=== PATIENT | male | born 1950 | race Caucasian/White ===

== ENCOUNTER 2017-06-18 08:13 | Inpatient (IN) | payer MEDICARE, BC ==
[~2017-06-18] VITALS: Ht 180.3 cm; Wt 77.8 kg
[2017-06-18 08:15] VITALS: BP 152/89; PULSE 66; RESP 12; TEMP 97.8; O2SAT 100
[2017-06-18] MEDS ORDERED: LAMO200T PO (08:47)
[2017-06-18] MEDS ORDERED: REME15TA PO (08:51)
[2017-06-18] MEDS ORDERED: ZOLP10TA3 PO (08:51)
[2017-06-18] MEDS ORDERED: SIMV40TA PO (08:51)
[2017-06-18] MEDS ORDERED: HYDR25TA5 PO (08:51)
[2017-06-18] MEDS ORDERED: VALS1TAB70 PO (08:51)
[2017-06-18 09:13] LABS: AUTOMATED NEUTROPHIL # 4.5 TH/MM3 (1.8-7.7); BASOPHIL % 0.4 % (0.0-2.0); EOSINOPHIL # 0.1 TH/MM3 (0-0.4); HEMATOCRIT 36.4 % (39.0-51.0); HEMOGLOBIN 12.4 GM/DL (13.0-17.0); LYMPH % 16.4 % (9.0-44.0); MEAN CELL VOLUME 93.7 FL (80.0-100.0); MEAN CORPUSCULAR HEMOGLOBIN 31.9 PG (27.0-34.0); MEAN CORPUSCULAR HGB CONC 34.1 % (32.0-36.0); MEAN PLATELET VOLUME 6.5 FL (7.0-11.0); MONO % 10.7 % (0.0-8.0); MONOCYTE # 0.7 TH/MM3 (0-0.9); NEUT % 71.5 % (16.0-70.0); PLATELET COUNT 212 TH/MM3 (150-450); RED BLOOD COUNT 3.89 MIL/MM3 (4.50-5.90); WHITE BLOOD COUNT 6.2 TH/MM3 (4.0-11.0)
[2017-06-18 09:33] LABS: ALBUMIN 3.8 GM/DL (3.4-5.0); ALT (GPT) 21 U/L (12-78); AST (GOT) 20 U/L (15-37); BICARBONATE 28.9 MEQ/L (21.0-32.0); BLOOD UREA NITROGEN 6 MG/DL (7-18); CALCIUM 9.5 MG/DL (8.5-10.1); CHLORIDE 100 MEQ/L (98-107); CREATININE 0.75 MG/DL (0.60-1.30); GLOMERULAR FILTRATION RATE 103 ML/MIN (>89); GLUCOSE,RANDOM 120 MG/DL (74-106); SODIUM (NA) 135 MEQ/L (136-145)
[2017-06-18 09:44] LABS: ACETAMINOPHEN LESS THAN 2.0 MCG/ML (10.0-30.0); ALKALINE PHOSPHATASE 68 U/L (45-117); TOTAL BILIRUBIN ADULT 0.5 MG/DL (0.2-1.0); TOTAL PROTEIN 7.6 GM/DL (6.4-8.2)
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
--- NOTE | 2017-06-18 10:30 | RADRPT ---
EXAM DATE/TIME: 06/18/2017 10:11 [place] COMPARISON: No previous studies available for comparison. INDICATIONS : Altered mental status. RADIATION DOSE: 42.74 CTDIvol (mGy) MEDICAL HISTORY : Carcinoma, prostate. Hypertension. SURGICAL HISTORY : Prostatectomy. ENCOUNTER: Initial ACUITY: 1 day PAIN SCALE: 0/10 LOCATION: cranial TECHNIQUE: Multiple contiguous axial images were obtained of the head. Using automated exposure control and adj ustment of the mA and/or kV according to patient size, radiation dose was kept as low as reasonably a chievable to obtain optimal diagnostic quality images. DICOM format image data is available electro nically for review and comparison. FINDINGS: CEREBRUM: The ventricles are normal for age. No evidence of midline shift, mass lesion, hemorrhage or acute in farction. No extra-axial fluid collections are seen. POSTERIOR FOSSA: The cerebellum and brainstem are intact. The 4th ventricle is midline. The cerebellopontine angle i s unremarkable. EXTRACRANIAL: The visualized portion of the orbits is intact. SKULL: The calvaria is intact. No evidence of skull fracture. CONCLUSION: 1. No acute intracranial abnormalities. Fluid in the mastoid air cells. Mike Castle MD on June 18, 2017 at 10:26 Board Certified Radiologist. This report was verified electronically.
[2017-06-18] MEDS ORDERED: MAGNESIUM HYDROXIDE SUSP 30 ML CUP PO PRN (11:15)
[2017-06-18] MEDS ORDERED: diphenhydrAMINE HCL 50 MG/ML VIAL IM PRN (11:15)
[2017-06-18] MEDS ORDERED: ALUMINUM/MAGNESIUM/SIMETH 30 ML CUP PO PRN (11:15)
[2017-06-18] MEDS ORDERED: LORazepam 2 MG/ML VIAL IM PRN (11:15)
[2017-06-18] MEDS ORDERED: ACETAMINOPHEN 325 MG TAB PO PRN (11:15)
--- NOTE | 2017-06-18 11:58 | HHI.HP ---
Provisional Diagnosis Admission Date Jun 18, 2017 at 11:13 [place] I. Bipolar disorder Certification of Person's Competence To Provide Express and Informed Consent I have personally examined Geovanni Bishop , a person being served at [facility] on, Jun 18, 2017 11:47. Express and informed consent means consent voluntarily given in writing, by a competent person, after sufficient explanation and disclosure of the subject matter involved to enable the person to make a knowing and willful decision without any element of force, fraud, deceit, duress, or other form of constraint or coercion. This person is 18 years of age or older, is not now known to be incompetent to consent to treatment with a guardian advocate, and does not have a health care surrogate or proxy currently making medical treatment decisions. I have found this person to be one of the following: [] Competent to provide express and informed consent, as defined above, for voluntary admission to this facility and is competent to provide express and informed consent for treatment. He/she has the consistent capacity to make well reasoned, willful, and knowing decisions concerning his or her medical or mental health treatment. The person fully and consistently understands the purpose of the admission for examination/placement and is fully capable of personally exercising all rights assured [place] [X] Incompetent to provide express and informed consent to voluntary admission, and this is incompetent to provide express and informed consent to treatment. The person must be transferred to involuntary status and a petition for a guardian advocate filed with the Circuit Court. [] Refusing to provide express and informed consent to voluntary admission but is competent to provide express and informed consent for treatment. The person must be discharged or transferred to involuntary status. Form shall be completed within 24 hours of a person's arrival at the receiving facility and filed in the clinical record of each person: 1. Admitted on a voluntary basis 2. Permitted to provide express and informed consent to his/her own treatment 3. Allowed to transfer from involuntary to voluntary status 4. Prior to permitting a person to consent to his or her own treatment after having been previously found incompetent to consent to treatment. History of Present Illness Capacity: Lacks Capacity HPI 67-year-old male with multiyear history of bipolar disorder, noncompliant with medications recently, Owen acted by [facility] physician for inability to care for self. This physician completed the civil commitment paperwork because the patient is too psychotic to be considered competent. He is a very poor historian at this time and engages in loose associations, bordering on Word salad, flight of ideas, ideas of reference, etc. When approached by this physician, the patient indicated he met got in the bathroom this morning. He explained "Jakcie, Garth, Miles". When asked what that meant, the patient indicated his of "forever" was related to these names. The patient's was contacted and indicates he does have a history of bipolar disorder, has been noncompliant with his medications for an unknown period of time and is grossly psychotic and disorganized. He has a history of medical issues and is not taking his non-psychiatric medicines to care for himself. His is unable to care for him at this time. He is experiencing auditory hallucinations, visual hallucinations and confucianism delusions. Review of Systems Psychiatric: COMPLAINS OF: Confusion, Agitation, Delusions Except as stated in HPI: all other systems reviewed are Neg Past Psych History Psychological trauma history Multiyear history of bipolar disorder. Violence risk - others (6 mos) Moderate to severe Violence risk - self (6 mos) Moderate to severe Substance Abuse History Drugs/Alcohol past 12 months Denied Past Family Social History Coded Allergies: latex (Verified Adverse Reaction, Severe, 06/18/17) Reported Medications Mirtazapine (Remeron) 15 Mg Tab, PO HS for Depression Control, #30 TAB 0 Refills 06/18/17 Valsartan (Valsartan) 320 Mg Tab, 320 MG PO DAILY, #30 TAB 0 Refills 06/18/17 Simvastatin (Simvastatin) 40 Mg Tab, 40 MG PO HS for Cholesterol Management, # 30 TAB 0 Refills 06/18/17 Zolpidem (Zolpidem) 10 Mg Tab, 10 MG PO HS Y for INSOMNIA, TAB 0 Refills 06/18/17 Hydrochlorothiazide (Hydrochlorothiazide) 25 Mg Tab, 25 MG PO DAILY, #30 TAB 0 Refills 06/18/17 Lamotrigine (Lamotrigine) 200 Mg Tab, 200 MG PO DAILY for Control Seizures, #30 TAB 0 Refills 06/18/17 Current Medications Medications (Trade) Dose Ordered Sig/Tami Route Start Time Stop Time Status Last Admin (Ativan) 1 mg Q6H PRN PO 06/18/17 11:15 (Ativan Inj) 1 mg Q6H PRN IM 06/18/17 11:15 (Benadryl) 50 mg Q6H PRN PO 06/18/17 11:15 (Benadryl Inj) 50 mg Q6H PRN IM 06/18/17 11:15 (Tylenol) 650 mg Q4H PRN PO 06/18/17 11:15 (Milk Of Magnesia Liq) 30 ml DAILY PRN PO 06/18/17 11:15 (Mag-Al Plus Susp Liq) 30 ml Q6H PRN PO 06/18/17 11:15 (Hydrodiuril) 25 mg DAILY PO 06/19/17 09:00 (LaMICtal) 200 mg DAILY PO 06/19/17 09:00 (Diovan) 320 mg DAILY PO 06/19/17 09:00 (Ambien) 10 mg HS PRN PO 06/18/17 21:00 (Pravachol) 80 mg HS PO 06/18/17 21:00 Family Psych History Apparently mood disorders run in the patient's family. Social History As stated above, the patient is . He is unemployed. He does receive Social Security. His is supportive. However she is the only one that is able to be supportive locally and she is overwhelmed by his current state of psychosis. Patient does not reportedly have a past history of alcoholism or drug abuse. Patient's Strengths (min. 2) Verbal and has access to healthcare. Physical Exam GENERAL: SKIN: Warm and dry. HEAD: Normocephalic. EYES: No scleral icterus. No injection or drainage. NECK: Supple, trachea midline. No JVD or lymphadenopathy. CARDIOVASCULAR: Regular rate and rhythm without murmurs, gallops, or rubs. RESPIRATORY: Breath sounds equal bilaterally. No accessory muscle use. GASTROINTESTINAL: Abdomen soft, non-tender, nondistended. MUSCULOSKELETAL: No cyanosis, or edema. BACK: Nontender without obvious deformity. No CVA tenderness. Vital Signs Vital Signs Date Time Temp Pulse Resp B/P (MAP) Pulse Ox O2 Delivery O2 Flow Rate FiO2 06/18/17 08:15 97.8 66 12 152/89 (110) 100 Lab Results Test 06/18/17 08:45 White Blood Count 6.2 TH/MM3 Red Blood Count 3.89 MIL/MM3 Hemoglobin 12.4 GM/DL Hematocrit 36.4 % Mean Corpuscular Volume 93.7 FL Mean Corpuscular Hemoglobin 31.9 PG Mean Corpuscular Hemoglobin Concent 34.1 % Red Cell Distribution Width 14.0 % Platelet Count 212 TH/MM3 Mean Platelet Volume 6.5 FL Neutrophils (%) (Auto) 71.5 % Lymphocytes (%) (Auto) 16.4 % Monocytes (%) (Auto) 10.7 % Eosinophils (%) (Auto) 1.0 % Basophils (%) (Auto) 0.4 % Neutrophils # (Auto) 4.5 TH/MM3 Lymphocytes # (Auto) 1.0 TH/MM3 Monocytes # (Auto) 0.7 TH/MM3 Eosinophils # (Auto) 0.1 TH/MM3 Basophils # (Auto) 0.0 TH/MM3 CBC Comment DIFF FINAL Differential Comment Blood Urea Nitrogen 6 MG/DL Creatinine 0.75 MG/DL Random Glucose 120 MG/DL Total Protein 7.6 GM/DL Albumin 3.8 GM/DL Calcium Level 9.5 MG/DL Alkaline Phosphatase 68 U/L Aspartate Amino Transf (AST/SGOT) 20 U/L Alanine Aminotransferase (ALT/SGPT) 21 U/L Total Bilirubin 0.5 MG/DL Sodium Level 135 MEQ/L Potassium Level 3.4 MEQ/L Chloride Level 100 MEQ/L Carbon Dioxide Level 28.9 MEQ/L Anion Gap 6 MEQ/L Estimat Glomerular Filtration Rate 103 ML/MIN Thyroid Stimulating Hormone 3rd Gen 1.200 uIU/ML Salicylates Level LESS THAN 1.7 MG/DL Acetaminophen Level LESS THAN 2.0 MCG/ML Ethyl Alcohol Level LESS THAN 3 MG/DL Mental Status Examination Appearance: Disheveled Consciousness: Alert Orientation: Person Motor Activity: Normal gait Speech: Rapid Language: Adequate Fund of Knowledge: Adequate Attention and Concentration: Inadequate Memory: Impaired Mood: Manic Affect: Labile Thought Process & Associations: Loose associations, Circumstantial, Disorganized, Tangential Thought Content: Bizarre thinking, Ideas of reference, Hallucinations, Racing thoughts, Preoccupations, Delusional Hallucination Type: Auditory, Visual Delusion Type: None Suicidal Ideation: No Suicidal Plan: No Suicidal Intention: No Homicidal Ideation: No Homicidal Plan: No Homicidal Intention: No Insight: Poor Judgment: Poor Assessment & Plan Problem List: (1) Bipolar disorder, current episode mixed, severe, with psychotic features ICD Codes: F31.64 - Bipolar disorder, current episode mixed, severe, with psychotic features Assessment & Plan Estimated LOS: days. 67-year-old male under civil commitment, currently grossly psychotic, confused and disorganized. Unable to care for self and not taking his psychotropic as well as nonpsychotropic medications. Has underlying medical issues that do require treatment. is unable to care for him. For these reasons the patient is being admitted for further evaluation and treatment. This physician has ordered a CBC and comprehensive metabolic panel to determine if any infectious process or metabolic process might be causing or contributing to the patient's psychosis and mood instability. Conversely, the patient's current state of bipolar disorder, may be adversely affecting the patient's metabolic's, including electrolytes, blood pressure, etc. For this reason this physician has also ordered a hep us consult to evaluate and treat the patient has necessary. Patient is not considered competent and therefore his will be asked to serve as a healthcare surrogate at this time. Also ordered was thyroid-stimulating hormone, vitamin B-12 and vitamin D levels as deficiencies in these areas can cause or contribute to the patient's psychosis. An EKG was ordered to determine the patient's cardiac conduction status, prior to significantly altering his psychotropic medicines which might adversely affect the electrical system of his heart. Hemoglobin A1c and a lipid panel were also ordered due to the patient's age and recent lack of self-care as well as his history of taking psychotropic medicines which can adversely affect his lipids and blood sugars. This case was discussed with the patient's nurse, Joellen. Case management will also be involved to assist with information gathering and disposition planning. Klever Sanderson MD Jun 18, 2017 11:58
[2017-06-18 15:00] VITALS: BP 171/90; PULSE 70; RESP 18; TEMP 97.9; O2SAT 97
[2017-06-18] MEDS: LORazepam 1 MG TAB PO PRN ×2 (16:00→21:23)
[2017-06-18] MEDS ORDERED: OLANZapine IM 10 MG VIAL IM ONE (16:30)
[2017-06-18] MEDS ORDERED: OLANZapine IM 10 MG VIAL IM PRN (16:30)
[2017-06-18] MEDS: diphenhydrAMINE HCL 50 MG CAP PO PRN (21:23)
[2017-06-18] MEDS: ZOLPIDEM TARTRATE 10 MG TAB PO PRN (21:23)
[2017-06-18] MEDS: PRAVASTATIN SOD 80 MG TAB PO SCH (21:23)
[2017-06-19 06:02] VITALS: BP 125/69; PULSE 68; RESP 20; TEMP 97.5; O2SAT 98
[2017-06-19] MEDS: VALSARTAN 160 MG TAB PO SCH (10:54)
[2017-06-19] MEDS: HYDROCHLOROTHIAZIDE 25 MG TAB PO SCH (10:54)
[2017-06-19] MEDS: lamoTRIgine 100 MG TAB PO SCH (10:54)
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
--- NOTE | 2017-06-19 11:52 | EKG ---
Date Performed: 06/19/2017 Time Performed: 09:17:32 PTAGE: 67 years EKG: Sinus rhythm NORMAL ECG PREVIOUS TRACING : 03/23/2017 22.00 Compared to prior tracing, rate faster DOCTOR: Hal Us Interpretating Date/Time 06/19/2017 11:51:58
[2017-06-19] MEDS: OLANZapine 5 MG TAB PO SCH ×2 (12:30→20:57)
[2017-06-19 15:16] LABS: AUTOMATED NEUTROPHIL # 3.5 TH/MM3 (1.8-7.7); BASOPHIL % 0.7 % (0.0-2.0); EOSINOPHIL # 0.1 TH/MM3 (0-0.4); HEMATOCRIT 37.9 % (39.0-51.0); HEMOGLOBIN 13.1 GM/DL (13.0-17.0); LYMPH % 21.5 % (9.0-44.0); LYMPHOCYTE # 1.2 TH/MM3 (1.0-4.8); MEAN CELL VOLUME 92.5 FL (80.0-100.0); MEAN CORPUSCULAR HEMOGLOBIN 31.9 PG (27.0-34.0); MEAN CORPUSCULAR HGB CONC 34.4 % (32.0-36.0); MEAN PLATELET VOLUME 6.5 FL (7.0-11.0); MONO % 11.9 % (0.0-8.0); MONOCYTE # 0.6 TH/MM3 (0-0.9); NEUT % 64.9 % (16.0-70.0); PLATELET COUNT 241 TH/MM3 (150-450); RED CELL DISTRIBUTION WIDTH 13.6 % (11.6-17.2); WHITE BLOOD COUNT 5.4 TH/MM3 (4.0-11.0)
[2017-06-19 15:34] LABS: ALT (GPT) 22 U/L (12-78); AST (GOT) 20 U/L (15-37); BICARBONATE 33.2 MEQ/L (21.0-32.0); BLOOD UREA NITROGEN 12 MG/DL (7-18); CALCIUM 8.9 MG/DL (8.5-10.1); CHLORIDE 101 MEQ/L (98-107); CHOLESTEROL 156 MG/DL (120-200); CREATININE 0.75 MG/DL (0.60-1.30); GLOMERULAR FILTRATION RATE 103 ML/MIN (>89); GLUCOSE,RANDOM 77 MG/DL (74-106); SODIUM (NA) 140 MEQ/L (136-145); TRIGLYCERIDES 75 MG/DL (42-150)
[2017-06-19 15:59] LABS: ALKALINE PHOSPHATASE 68 U/L (45-117); LDL CHOLESTEROL 67 MG/DL (0-99); TOTAL BILIRUBIN ADULT 0.4 MG/DL (0.2-1.0); TOTAL PROTEIN 7.7 GM/DL (6.4-8.2)
[2017-06-19] MEDS: LORazepam 1 MG TAB PO PRN (16:55)
--- NOTE | 2017-06-19 16:56 | HHI.PYPN ---
Subjective Remarks Patient seen for follow-up, chart reviewed. Patient is a 67-year-old man, , retired on social security benefits, , past psychiatric history of bipolar disorder, no previous psychiatric admissions as per patient no previous suicide attempt by self and his behavior, currently follows up with Dr. Akers for psychiatric services who was brought into the ED accompanied by for "mental breakdown" secondary to bipolar disorder noncompliance with medications which she was transferred to the inpatient psychiatry for further evaluation and management. Discussion she staff reported the patient had received ETO yesterday due to aggressive behavior requiring restraints and continues to be noted to be circumstantial and labile. Patient was found and relating on the unit was able to sit down to participate in interview today. Patient noted to continue with disorganization, flight of ideas, loosening associations and pressured speech. Patient states that he had ". On the floor [facility]" and mentioning that he was involved in "events" to get the devil out of him which patient did not elaborate on. Patient noted to jump from topic to topic, recalling disorganized behavior at home. Patient states he has had several days without sleep and states that for the past couple days and has been "a blur", noted to have some distractibility, denies irritability, patient noted Lopressor speech having racing thoughts. Patient denies any perceptual disturbances but was endorsing auditory or visual hallucinations on admission. Patient continues to endorse restoration delusions. Review of Systems Except as stated in HPI: all other systems reviewed are Neg Mental Status Examination Appearance: Disheveled Consciousness: Alert Orientation: Person Motor Activity: Normal gait Speech: Pressured Language: Adequate Fund of Knowledge: Adequate Attention and Concentration: Inadequate Memory: Impaired Mood: Manic Affect: Labile Thought Process & Associations: Loose associations, Circumstantial, Disorganized, Tangential Thought Content: Bizarre thinking, Ideas of reference, Hallucinations (denies today), Racing thoughts, Preoccupations, Delusional Hallucination Type: Auditory, Visual Delusion Type: Other (restoration) Suicidal Ideation: No Suicidal Plan: No Suicidal Intention: No Homicidal Ideation: No Homicidal Plan: No Homicidal Intention: No Insight: Poor Judgment: Poor Results Labs Labs reviewed Test 06/19/17 14:23 White Blood Count 5.4 TH/MM3 Red Blood Count 4.10 MIL/MM3 Hemoglobin 13.1 GM/DL Hematocrit 37.9 % Mean Corpuscular Volume 92.5 FL Mean Corpuscular Hemoglobin 31.9 PG Mean Corpuscular Hemoglobin Concent 34.4 % Red Cell Distribution Width 13.6 % Platelet Count 241 TH/MM3 Mean Platelet Volume 6.5 FL Neutrophils (%) (Auto) 64.9 % Lymphocytes (%) (Auto) 21.5 % Monocytes (%) (Auto) 11.9 % Eosinophils (%) (Auto) 1.0 % Basophils (%) (Auto) 0.7 % Neutrophils # (Auto) 3.5 TH/MM3 Lymphocytes # (Auto) 1.2 TH/MM3 Monocytes # (Auto) 0.6 TH/MM3 Eosinophils # (Auto) 0.1 TH/MM3 Basophils # (Auto) 0.0 TH/MM3 CBC Comment DIFF FINAL Differential Comment Blood Urea Nitrogen 12 MG/DL Creatinine 0.75 MG/DL Random Glucose 77 MG/DL Total Protein 7.7 GM/DL Albumin 4.0 GM/DL Calcium Level 8.9 MG/DL Alkaline Phosphatase 68 U/L Aspartate Amino Transf (AST/SGOT) 20 U/L Alanine Aminotransferase (ALT/SGPT) 22 U/L Total Bilirubin 0.4 MG/DL Sodium Level 140 MEQ/L Potassium Level 3.6 MEQ/L Chloride Level 101 MEQ/L Carbon Dioxide Level 33.2 MEQ/L Anion Gap 6 MEQ/L Estimat Glomerular Filtration Rate 103 ML/MIN Triglycerides Level 75 MG/DL Cholesterol Level 156 MG/DL LDL Cholesterol 67 MG/DL HDL Cholesterol 74.0 MG/DL Cholesterol/HDL Ratio 2.10 RATIO Vitamin B12 Level 394 PG/ML 25-Hydroxy Vitamin D Total 13.5 ng/ML Vitals/IOs Vital Signs Date Time Temp Pulse Resp B/P (MAP) Pulse Ox O2 Delivery O2 Flow Rate FiO2 06/19/17 06:02 97.5 68 20 125/69 (87) 98 Intake and Output 06/19/17 06/19/17 06/20/17 08:00 16:00 00:00 Intake Total 120 ml 240 ml Output Total 1 ml Balance 119 ml 240 ml Assessment & Plan Problem List: (1) Bipolar disorder, current episode mixed, severe, with psychotic features ICD Codes: F31.64 - Bipolar disorder, current episode mixed, severe, with psychotic features Assessment & Plan Patient seen for second opinion: I have seen and examined this patient, reviewed the documentation and I agree and concur with Dr. Sanderson's assessment and plan. Patient at this time continues noted to have manic symptoms, disorganization and delusions. Patient to continue Lamictal 200 mg by mouth daily for mood stabilization, will start olanzapine 5 mg by mouth twice a day for psychosis, continue rest of medications. Continue recommend that she has a primary medical team. Discharge planning in progress Justification for Cont. Inpt. At risk for further decompensation if at lower level of care Discharge Planning Patient to return back to his residence when psychiatrically stable Washington Samuel MD Jun 19, 2017 16:56
[2017-06-19 18:21] VITALS: BP 144/85; PULSE 69; RESP 20; TEMP 97.9
[2017-06-19 19:00] LABS: HEMOGLOBIN A1C 5.1 % (4.3-6.0)
[2017-06-19] MEDS: ZOLPIDEM TARTRATE 10 MG TAB PO PRN (20:57)
[2017-06-19] MEDS: PRAVASTATIN SOD 80 MG TAB PO SCH (20:57)
[2017-06-20 06:05] VITALS: BP 103/51; PULSE 59; RESP 17; TEMP 97.5; O2SAT 96
[2017-06-20] MEDS: lamoTRIgine 100 MG TAB PO SCH (10:12)
[2017-06-20] MEDS: VALSARTAN 160 MG TAB PO SCH (10:12)
[2017-06-20] MEDS: OLANZapine 5 MG TAB PO SCH (10:14)
[2017-06-20] MEDS: HYDROCHLOROTHIAZIDE 25 MG TAB PO SCH (10:23)
--- NOTE | 2017-06-20 14:18 | HHI.PYPN ---
Subjective Remarks Patient seen for follow-up, chart reviewed. Discussion with nursing staff reported that the patient continues to be noted to have pressured speech, flight of ideas, hypersexual, and noted to have improved sleep. Patient found sitting on chair eating breakfast, noted to be calm and cooperative with interview. Patient noted to continue with flight of ideas, spoke about [employer] players and noted that the patinet had written down a list of [employer] players. Patient also noted to have pressured speech, less disorganized but continues with flight of ideas. He states that his mood is "really good", reports having woken up at 4am with difficulty going back to sleep. Review of Systems Immunologic/allergic: COMPLAINS OF: Eczema Except as stated in HPI: all other systems reviewed are Neg Mental Status Examination Appearance: Disheveled Consciousness: Alert Orientation: Person Motor Activity: Normal gait Speech: Pressured (less so today) Language: Adequate Fund of Knowledge: Adequate Attention and Concentration: Inadequate Memory: Impaired Mood: Manic Affect: Labile Thought Process & Associations: Loose associations, Circumstantial, Disorganized, Tangential Thought Content: Bizarre thinking, Ideas of reference, Hallucinations (denies today), Racing thoughts, Preoccupations, Delusional Hallucination Type: Auditory, Visual Delusion Type: Other (episcopalian) Suicidal Ideation: No Suicidal Plan: No Suicidal Intention: No Homicidal Ideation: No Homicidal Plan: No Homicidal Intention: No Insight: Poor Judgment: Poor Results Labs Test 06/19/17 14:23 White Blood Count 5.4 TH/MM3 Red Blood Count 4.10 MIL/MM3 Hemoglobin 13.1 GM/DL Hematocrit 37.9 % Mean Corpuscular Volume 92.5 FL Mean Corpuscular Hemoglobin 31.9 PG Mean Corpuscular Hemoglobin Concent 34.4 % Red Cell Distribution Width 13.6 % Platelet Count 241 TH/MM3 Mean Platelet Volume 6.5 FL Neutrophils (%) (Auto) 64.9 % Lymphocytes (%) (Auto) 21.5 % Monocytes (%) (Auto) 11.9 % Eosinophils (%) (Auto) 1.0 % Basophils (%) (Auto) 0.7 % Neutrophils # (Auto) 3.5 TH/MM3 Lymphocytes # (Auto) 1.2 TH/MM3 Monocytes # (Auto) 0.6 TH/MM3 Eosinophils # (Auto) 0.1 TH/MM3 Basophils # (Auto) 0.0 TH/MM3 CBC Comment DIFF FINAL Differential Comment Blood Urea Nitrogen 12 MG/DL Creatinine 0.75 MG/DL Random Glucose 77 MG/DL Total Protein 7.7 GM/DL Albumin 4.0 GM/DL Calcium Level 8.9 MG/DL Alkaline Phosphatase 68 U/L Aspartate Amino Transf (AST/SGOT) 20 U/L Alanine Aminotransferase (ALT/SGPT) 22 U/L Total Bilirubin 0.4 MG/DL Sodium Level 140 MEQ/L Potassium Level 3.6 MEQ/L Chloride Level 101 MEQ/L Carbon Dioxide Level 33.2 MEQ/L Anion Gap 6 MEQ/L Estimat Glomerular Filtration Rate 103 ML/MIN Hemoglobin A1c 5.1 % Triglycerides Level 75 MG/DL Cholesterol Level 156 MG/DL LDL Cholesterol 67 MG/DL HDL Cholesterol 74.0 MG/DL Cholesterol/HDL Ratio 2.10 RATIO Vitamin B12 Level 394 PG/ML 25-Hydroxy Vitamin D Total 13.5 ng/ML Vitals/IOs Vital Signs Date Time Temp Pulse Resp B/P (MAP) Pulse Ox O2 Delivery O2 Flow Rate FiO2 06/20/17 06:05 97.5 59 17 103/51 (68) 96 Intake and Output 06/20/17 06/20/17 06/21/17 08:00 16:00 00:00 Intake Total 480 ml Balance 480 ml Assessment & Plan Problem List: (1) Bipolar disorder, current episode mixed, severe, with psychotic features ICD Codes: F31.64 - Bipolar disorder, current episode mixed, severe, with psychotic features Assessment & Plan Patient continues with manicsymptons, continues wtih poor sleep. Will increase olanzapine 5mg AM/10mg HS for mod stabiliation. Continue rest of medications. Dishcharge planing in progress. Justification for Cont. Inpt. At risk for further decompensation at lower level of care Discharge Planning Back to residence when psychiatrically and medically stable Washington Samuel MD Jun 20, 2017 14:18
[2017-06-20 18:56] VITALS: BP 144/68; PULSE 69; RESP 18; TEMP 97.9; O2SAT 99
[2017-06-20] MEDS ORDERED: OLANZapine 10 MG TAB PO SCH (21:00)
[2017-06-20] MEDS: PRAVASTATIN SOD 80 MG TAB PO SCH (21:00)
[2017-06-20] MEDS: ZOLPIDEM TARTRATE 10 MG TAB PO PRN (21:54)
[2017-06-21 06:09] VITALS: BP 108/60; PULSE 67; RESP 16; TEMP 97.3; O2SAT 98
--- NOTE | 2017-06-21 08:06 | HHI.PYPN ---
Subjective Remarks Patient seen for follow-up, chart reviewed. Discussion nursing staff reported patient was irritable yesterday was somewhat argumentative with nursing staff yesterday over being suspicious and paranoid, continues to have risky behavior which patient decided to divorce his . Patient was found sitting in hospital bed noted to be tearful with labile mood stated that he broke up with his last night. Patient reports having slept well, and as per records patient's about 6 hours last evening. Patient continues be noted to have less pressured speech but both but still present and continues to have some loosening associations. Patient yesterday as per nursing report also was noted to be irritable with flight of ideas. Review of Systems Except as stated in HPI: all other systems reviewed are Neg Mental Status Examination Appearance: Disheveled Consciousness: Alert Orientation: Person Motor Activity: Normal gait Speech: Pressured (less so today) Language: Adequate Fund of Knowledge: Adequate Attention and Concentration: Inadequate Memory: Impaired Mood: Manic Affect: Labile Thought Process & Associations: Loose associations, Circumstantial, Disorganized, Tangential Thought Content: Bizarre thinking, Ideas of reference, Hallucinations (denies today), Racing thoughts, Preoccupations, Delusional Hallucination Type: Auditory, Visual Delusion Type: Other (worship) Suicidal Ideation: No Suicidal Plan: No Suicidal Intention: No Homicidal Ideation: No Homicidal Plan: No Homicidal Intention: No Insight: Poor Judgment: Poor Results Vitals/IOs Vital Signs Date Time Temp Pulse Resp B/P (MAP) Pulse Ox O2 Delivery O2 Flow Rate FiO2 06/21/17 06:09 97.3 67 16 108/60 (76) 98 Intake and Output 06/21/17 06/21/17 06/22/17 08:00 16:00 00:00 Intake Total 5 ml Balance 5 ml Assessment & Plan Problem List: (1) Bipolar disorder, current episode mixed, severe, with psychotic features ICD Codes: F31.64 - Bipolar disorder, current episode mixed, severe, with psychotic features Assessment & Plan Patient at this time continues to have pressure speech a little less intense and continues to have loosening associations during interview with labile mood as well as making rash decisions such as why did endorse his . Will continue olanzapine 10 mg by mouth twice a day we'll increase lamotrigine to 200 mg a.m. and 25 mg p.m. for mood stabilization. Continue rest of medications. Continue monitor mood and behavior. Discharge planning in progress Justification for Cont. Inpt. At risk for further decompensation if at lower level of care Discharge Planning Patient to return back to his residence when psychiatrically stable Washington Samuel MD Jun 21, 2017 08:06
[2017-06-21] MEDS ORDERED: OLANZapine 5 MG TAB PO SCH (09:00)
[2017-06-21] MEDS: VALSARTAN 160 MG TAB PO SCH (10:18)
[2017-06-21] MEDS: HYDROCHLOROTHIAZIDE 25 MG TAB PO SCH (10:18)
[2017-06-21] MEDS: OLANZapine 10 MG TAB PO SCH ×2 (10:18→21:32)
[2017-06-21] MEDS: lamoTRIgine 100 MG TAB PO SCH (10:18)
[2017-06-21] MEDS: lamoTRIgine 25 MG TAB PO SCH (18:09)
[2017-06-21 18:37] VITALS: BP 119/70; PULSE 64; RESP 16; TEMP 98; O2SAT 99
[2017-06-21] MEDS: ZOLPIDEM TARTRATE 10 MG TAB PO PRN (21:32)
[2017-06-21] MEDS: PRAVASTATIN SOD 80 MG TAB PO SCH (21:32)
[2017-06-22 05:56] VITALS: BP 113/60; PULSE 52; RESP 16; TEMP 97.3; O2SAT 98
[2017-06-22] MEDS: HYDROCHLOROTHIAZIDE 25 MG TAB PO SCH (08:31)
[2017-06-22] MEDS: lamoTRIgine 100 MG TAB PO SCH (08:31)
[2017-06-22] MEDS: VALSARTAN 160 MG TAB PO SCH (08:31)
[2017-06-22] MEDS: OLANZapine 10 MG TAB PO SCH ×2 (08:31→20:16)
--- NOTE | 2017-06-22 08:32 | HHI.PYPN ---
Subjective Remarks Patient seen in his room with nurse Crystal, chart review, patient compliant medication. Patient up sitting on the side of his bed. He is alert oriented calm cooperative pleasant with good eye contact. His speech rate and rhythm are within normal limits. There is no pressure or rapidity at this time. He denies suicidality homicidality voices or visions. He did take 10 of tearful increased affect when asked about any conversations with his her family. I suggested that he attempt to speak with her perhaps the counselor while in the hospital to discuss ways to help him with his disease at home he appears willing to do that now continue treatment Review of Systems Except as stated in HPI: all other systems reviewed are Neg Mental Status Examination Appearance: Disheveled Consciousness: Alert Orientation: Person Motor Activity: Normal gait Speech: Pressured (less so today) Language: Adequate Fund of Knowledge: Adequate Attention and Concentration: Inadequate Memory: Impaired Mood: Manic Affect: Labile Thought Process & Associations: Loose associations, Circumstantial, Disorganized, Tangential Thought Content: Bizarre thinking, Ideas of reference, Hallucinations (denies today), Racing thoughts, Preoccupations, Delusional Hallucination Type: Auditory, Visual Delusion Type: Other (gnosticism) Suicidal Ideation: No Suicidal Plan: No Suicidal Intention: No Homicidal Ideation: No Homicidal Plan: No Homicidal Intention: No Insight: Poor Judgment: Poor Results Vitals/IOs Vital Signs Date Time Temp Pulse Resp B/P (MAP) Pulse Ox O2 Delivery O2 Flow Rate FiO2 06/22/17 05:56 97.3 52 16 113/60 (77) 98 Intake and Output 06/22/17 06/22/17 06/23/17 08:00 16:00 00:00 Intake Total 120 ml Balance 120 ml Assessment & Plan Problem List: (1) Bipolar disorder, current episode mixed, severe, with psychotic features ICD Codes: F31.64 - Bipolar disorder, current episode mixed, severe, with psychotic features Assessment & Plan Estimated LOS: days patient melissa appears to be subsiding. Is compliant with medications. Would suggest to patient that he meet with his prior to discharge perhaps the counselor to assist with discharge and services in the community Justification for Cont. Inpt. At this time patient will decompensate or placed on the lower level of care Discharge Planning Probable return home to family Pedrito Mayorga MD Jun 22, 2017 08:32
[2017-06-22] MEDS: lamoTRIgine 25 MG TAB PO SCH (17:54)
[2017-06-22 18:45] VITALS: BP 130/72; PULSE 68; RESP 17; TEMP 97.7; O2SAT 98
[2017-06-22] MEDS: PRAVASTATIN SOD 80 MG TAB PO SCH (20:16)
[2017-06-22] MEDS: ZOLPIDEM TARTRATE 10 MG TAB PO PRN (22:00)
[2017-06-23 06:21] VITALS: BP 119/59; PULSE 62; RESP 16; TEMP 97.5; O2SAT 98
--- NOTE | 2017-06-23 08:02 | HHI.PYPN ---
Subjective Remarks Patient seen in the room to floor staff, chart review, patient compliant medication. It appears patient had a quiet night slept well, slightly patient in bed calm pleasant no complaints at this time continues to denies suicidality of voices. Review of Systems Except as stated in HPI: all other systems reviewed are Neg Mental Status Examination Appearance: Disheveled Consciousness: Alert Orientation: Person Motor Activity: Normal gait Speech: Pressured (less so today) Language: Adequate Fund of Knowledge: Adequate Attention and Concentration: Inadequate Memory: Impaired Mood: Manic Affect: Labile Thought Process & Associations: Loose associations, Circumstantial, Disorganized, Tangential Thought Content: Bizarre thinking, Ideas of reference, Hallucinations (denies today), Racing thoughts, Preoccupations, Delusional Hallucination Type: Auditory, Visual Delusion Type: Other (zoroastrianism) Suicidal Ideation: No Suicidal Plan: No Suicidal Intention: No Homicidal Ideation: No Homicidal Plan: No Homicidal Intention: No Insight: Poor Judgment: Poor Results Vitals/IOs Vital Signs Date Time Temp Pulse Resp B/P (MAP) Pulse Ox O2 Delivery O2 Flow Rate FiO2 06/23/17 06:21 97.5 62 16 119/59 (79) 98 Intake and Output 06/23/17 06/23/17 06/24/17 08:00 16:00 00:00 Intake Total 120 ml Balance 120 ml Assessment & Plan Problem List: (1) Bipolar disorder, current episode mixed, severe, with psychotic features ICD Codes: F31.64 - Bipolar disorder, current episode mixed, severe, with psychotic features Assessment & Plan Estimated LOS: days patient calm today speech rate and rhythm are within normal limits. Is no behavior problem. For now continue treatment Justification for Cont. Inpt. At this time patient decompensate placed in a lower level of care Discharge Planning To be determined Pedrito Mayorga MD Jun 23, 2017 08:02
[2017-06-23] MEDS: lamoTRIgine 100 MG TAB PO SCH (08:30)
[2017-06-23] MEDS: HYDROCHLOROTHIAZIDE 25 MG TAB PO SCH (08:30)
[2017-06-23] MEDS: OLANZapine 10 MG TAB PO SCH ×2 (08:30→21:00)
[2017-06-23] MEDS: VALSARTAN 160 MG TAB PO SCH (08:30)
[2017-06-23] MEDS: lamoTRIgine 25 MG TAB PO SCH (17:29)
[2017-06-23] MEDS: PRAVASTATIN SOD 80 MG TAB PO SCH (21:00)
[2017-06-24 08:37] VITALS: BP 137/64; PULSE 69; RESP 20; TEMP 97.9; O2SAT 98
[2017-06-24] MEDS: lamoTRIgine 100 MG TAB PO SCH (11:41)
[2017-06-24] MEDS: OLANZapine 10 MG TAB PO SCH ×2 (11:41→20:51)
[2017-06-24] MEDS: HYDROCHLOROTHIAZIDE 25 MG TAB PO SCH (11:41)
[2017-06-24] MEDS: VALSARTAN 160 MG TAB PO SCH (11:43)
--- NOTE | 2017-06-24 17:23 | HHI.PYPN ---
Subjective Remarks Patient seen for follow-up, chart reviewed. Discussion her sister reported the patient yesterday had require ETO as he was running around the unit yesterday having some disorganized behavior as well as rehabilitation preoccupied. Patient also refused medications this morning. Patient was found in the restroom but was able to sit and chair cooperative with interview today. Patient noted to have pressured speech but was noted to be somewhat irritable and concrete. Patient states that he does not recall why he was agitated yesterday but did recall getting an ETO. Patient also mentions that he does not visit with his over the weekend because he was busy doing "a task" which patient was arranging seats in the day room. Patient agrees to continue treatment and was explained the patient will likely go [facility] for continued hospitalization if decided by the court. Review of Systems Except as stated in HPI: all other systems reviewed are Neg Mental Status Examination Appearance: Disheveled Consciousness: Alert Orientation: Person Motor Activity: Normal gait Speech: Pressured (less so today) Language: Adequate Fund of Knowledge: Adequate Attention and Concentration: Inadequate Memory: Impaired Mood: Manic Affect: Labile Thought Process & Associations: Loose associations, Disorganized, Tangential Thought Content: Bizarre thinking, Ideas of reference, Hallucinations, Racing thoughts, Preoccupations, Delusional Hallucination Type: Auditory (denies today), Visual (denies today) Delusion Type: Other (orthodox) Suicidal Ideation: No Suicidal Plan: No Suicidal Intention: No Homicidal Ideation: No Homicidal Plan: No Homicidal Intention: No Insight: Poor Judgment: Poor Results Vitals/IOs Vital Signs Date Time Temp Pulse Resp B/P (MAP) Pulse Ox O2 Delivery O2 Flow Rate FiO2 06/24/17 08:37 97.9 69 20 137/64 (88) 98 Intake and Output 06/24/17 06/24/17 06/25/17 08:00 16:00 00:00 Intake Total 960 ml Balance 960 ml Assessment & Plan Problem List: (1) Bipolar disorder, current episode mixed, severe, with psychotic features ICD Codes: F31.64 - Bipolar disorder, current episode mixed, severe, with psychotic features Assessment & Plan Patient was noted to start improving over the weekend but had agitation last night which patient required ETO and was noted to have some disorganization and orthodox preoccupation and increased goal-directed activity. Patient continued to go to somewhat disorganized, with poor insight and judgment, has been inconsistent with treatment but agrees to continue taking his medications for now. We'll increase Lamictal to 200 mg by mouth daily and 50 mg p.m., continue olanzapine 10 mg by mouth twice a day. Continue rest of medications. Continue to monitor mood and behavior. Discharge planning in progress Justification for Cont. Inpt. At risk for further decompensation at lower level of care Discharge Planning Patient to return back to his residence when psychiatrically stable Washington Samuel MD Jun 24, 2017 17:23
[2017-06-24 17:54] VITALS: BP 121/70; PULSE 81; RESP 17; TEMP 97.5; O2SAT 97
[2017-06-24] MEDS: lamoTRIgine 25 MG TAB PO SCH (18:01)
[2017-06-24] MEDS: PRAVASTATIN SOD 80 MG TAB PO SCH (20:51)
[2017-06-24] MEDS: ZOLPIDEM TARTRATE 10 MG TAB PO PRN (23:51)
[2017-06-25 05:54] VITALS: BP 98/56; PULSE 52; RESP 17; TEMP 97.7; O2SAT 98
--- NOTE | 2017-06-25 08:52 | HHI.PYPN ---
Subjective Remarks Patient seen for follow-up, chart reviewed. Discussion her sister reported the patient less evening was noted to be more organized not having any behavioral disturbances and was clear with his engagement during interactions. Patient was found sitting in room having breakfast on to be calm and cooperative. Patient states that yesterday he had a moment of clarity which she states went from "paranoid to normal" which she describes having realized he was in the hospital is here for treatment as opposed to before having believing he was in some sort of "purgatory was ". Patient noted to be calm and organized through interview with no delusional material elicited today but was noted to be somewhat tangential. Patient states that he had difficulty sleeping last evening due to another patient screaming in the unit but was able to sleep with medications. He also mentions having spoken to his yesterday when he states went well. He reports his mood as being "upbeat" denying any perceptual disturbances today. Review of Systems Except as stated in HPI: all other systems reviewed are Neg Mental Status Examination Appearance: Disheveled Consciousness: Alert Orientation: Person Motor Activity: Normal gait Speech: Pressured (less so today) Language: Adequate Fund of Knowledge: Adequate Attention and Concentration: Adequate Memory: Impaired Mood: Appropriate Affect: Anxious Thought Process & Associations: Tangential Thought Content: Preoccupations Hallucination Type: None Delusion Type: Other (faith) Suicidal Ideation: No Suicidal Plan: No Suicidal Intention: No Homicidal Ideation: No Homicidal Plan: No Homicidal Intention: No Insight: Poor Judgment: Poor Results Vitals/IOs Vital Signs Date Time Temp Pulse Resp B/P (MAP) Pulse Ox O2 Delivery O2 Flow Rate FiO2 06/25/17 05:54 97.7 52 17 98/56 (70) 98 Intake and Output 06/25/17 06/25/17 06/26/17 08:00 16:00 00:00 Intake Total 240 ml Balance 240 ml Assessment & Plan Problem List: (1) Bipolar disorder, current episode mixed, severe, with psychotic features ICD Codes: F31.64 - Bipolar disorder, current episode mixed, severe, with psychotic features Assessment & Plan Patient noted to be less disorganized, noted to be more engaging and reactive during interview although noted to be somewhat tangential. Patient appears to be improving on current regimen, continue current treatment. Continue to monitor mood and behavior. Discharge planning in progress. Justification for Cont. Inpt. At risk for decompensation at lower level of care Discharge Planning Return back home Washington Samuel MD Jun 25, 2017 08:52
[2017-06-25 08:58] VITALS: BP 105/63; PULSE 76
[2017-06-25] MEDS: OLANZapine 10 MG TAB PO SCH ×2 (08:59→21:03)
[2017-06-25] MEDS: HYDROCHLOROTHIAZIDE 25 MG TAB PO SCH (09:00)
[2017-06-25] MEDS: lamoTRIgine 100 MG TAB PO SCH (09:00)
[2017-06-25] MEDS: VALSARTAN 160 MG TAB PO SCH (09:00)
[2017-06-25] MEDS: lamoTRIgine 25 MG TAB PO SCH (17:48)
[2017-06-25 18:07] VITALS: BP 108/65; PULSE 70; RESP 16; TEMP 98; O2SAT 97
[2017-06-25] MEDS: ZOLPIDEM TARTRATE 10 MG TAB PO PRN (21:03)
[2017-06-25] MEDS: PRAVASTATIN SOD 80 MG TAB PO SCH (21:03)
[2017-06-26 05:27] VITALS: PULSE 71; TEMP 97.2
[2017-06-26 05:28] VITALS: BP 117/56; RESP 16; O2SAT 98
[2017-06-26] MEDS: lamoTRIgine 100 MG TAB PO SCH (08:39)
[2017-06-26] MEDS: OLANZapine 10 MG TAB PO SCH ×2 (08:39→20:44)
[2017-06-26] MEDS: VALSARTAN 160 MG TAB PO SCH (08:40)
[2017-06-26] MEDS: HYDROCHLOROTHIAZIDE 25 MG TAB PO SCH (08:40)
--- NOTE | 2017-06-26 10:56 | HHI.PYPN ---
Subjective Remarks Patient seen for follow-up, chart reviewed. Discussion she staff reported the patient has slept last evening and had no behavioral disturbances. Patient was found sitting in hospital bed, cooperative. Patient states that he has slept well, no problems with eating and drinking, reports his mood has been "upbeat", states that he is looking for to his visit with his today but denies having seen her yesterday. Patient denies recalling his goal-directed activity that has displayed while on the unit stating that he does not remember. Patient this time denies any perceptual disturbances or delusions. Review of Systems Except as stated in HPI: all other systems reviewed are Neg Mental Status Examination Appearance: Appropriate Consciousness: Alert Orientation: Person Motor Activity: Normal gait Speech: Pressured (less so today) Language: Adequate Fund of Knowledge: Adequate Attention and Concentration: Adequate Memory: Impaired Mood: Appropriate Affect: Appropriate Thought Process & Associations: Linear Thought Content: Preoccupations Hallucination Type: None Delusion Type: None Suicidal Ideation: No Suicidal Plan: No Suicidal Intention: No Homicidal Ideation: No Homicidal Plan: No Homicidal Intention: No Insight: Fair Judgment: Impulsive Results Vitals/IOs Vital Signs Date Time Temp Pulse Resp B/P (MAP) Pulse Ox O2 Delivery O2 Flow Rate FiO2 06/26/17 05:28 16 117/56 (76) 98 06/26/17 05:27 97.2 71 Intake and Output 06/26/17 06/26/17 06/27/17 08:00 16:00 00:00 Intake Total 240 ml Balance 240 ml Assessment & Plan Problem List: (1) Bipolar disorder, current episode mixed, severe, with psychotic features ICD Codes: F31.64 - Bipolar disorder, current episode mixed, severe, with psychotic features Assessment & Plan Patient at this time noted to have improvement in mood, noted to be tangential today, no pressured speech. We'll continue current treatment and continue to monitor mood and behavior to assure the patient's improvement is consistent. Collateral patient pending from 's visit to assess whether patient is back to baseline. Discharge planning in progress Justification for Cont. Inpt. At risk for the decompensation lower level of care Discharge Planning Back to his residence Washington Samuel MD Jun 26, 2017 10:56
[2017-06-26] MEDS: lamoTRIgine 25 MG TAB PO SCH (17:52)
[2017-06-26 18:00] VITALS: BP 110/67; PULSE 89; RESP 18; TEMP 98.2; O2SAT 97
[2017-06-26] MEDS: ZOLPIDEM TARTRATE 10 MG TAB PO PRN (20:44)
[2017-06-26] MEDS: PRAVASTATIN SOD 80 MG TAB PO SCH (20:44)
[2017-06-27 06:07] VITALS: BP 116/58; PULSE 58; RESP 18; TEMP 97.4; O2SAT 99
[2017-06-27] MEDS: VALSARTAN 160 MG TAB PO SCH (10:06)
[2017-06-27] MEDS: lamoTRIgine 100 MG TAB PO SCH (10:07)
[2017-06-27] MEDS: OLANZapine 10 MG TAB PO SCH (10:07)
[2017-06-27] MEDS: HYDROCHLOROTHIAZIDE 25 MG TAB PO SCH (10:07)
--- NOTE | 2017-06-27 11:19 | HHI.PYPN ---
Subjective Remarks Patient seen for follow-up, chart reviewed. Discussion she staff reported the patient has had no behavioral disturbances, was calm and cooperative with staff and slept last evening. Patient was taken to mental health Court where petition for involuntary hospitalization was granted as a continuance. Patient later interviewed in hospital room, cooperative. Patient states that he has slept well last evening, eating and drinking well, and mood as being "upbeat" feels that his thoughts are better organized that his memory is improving. Patient continues to mention that he is washing his hands about 10 times a day and fears of touching something that is evil and in connection with the devil. Patient denies any SI, HI, AVH but noted to have some congregation preoccupation still. Review of Systems Except as stated in HPI: all other systems reviewed are Neg Mental Status Examination Appearance: Appropriate Consciousness: Alert Orientation: Person Motor Activity: Normal gait Speech: Pressured (less so today) Language: Adequate Fund of Knowledge: Adequate Attention and Concentration: Adequate Memory: Impaired Mood: Appropriate Affect: Appropriate Thought Process & Associations: Linear Thought Content: Preoccupations (congregation) Hallucination Type: None Delusion Type: None Suicidal Ideation: No Suicidal Plan: No Suicidal Intention: No Homicidal Ideation: No Homicidal Plan: No Homicidal Intention: No Insight: Fair Judgment: Impulsive Results Vitals/IOs Vital Signs Date Time Temp Pulse Resp B/P (MAP) Pulse Ox O2 Delivery O2 Flow Rate FiO2 06/27/17 06:07 97.4 58 18 116/58 (77) 99 Intake and Output 06/27/17 06/27/17 06/28/17 08:00 16:00 00:00 Intake Total 0 ml 360 ml Balance 0 ml 360 ml Assessment & Plan Problem List: (1) Bipolar disorder, current episode mixed, severe, with psychotic features ICD Codes: F31.64 - Bipolar disorder, current episode mixed, severe, with psychotic features Assessment & Plan Patient this time noted with improved mood, no longer have any agitation or manic behavior although noted to have some congregation preoccupation still but less intense. We'll increase olanzapine to 10mg a.m., 12.5 mg at bedtime, continue rest of medications. Continue recommendations from primary medical team. Continue monitor mood and behavior. Patient presented to mental health Court which patient was retained other continuance. Discharge planning in progress Justification for Cont. Inpt. At risk for further decompensation if at lower level of care Discharge Planning Patient return back to his residence when psychiatrically stable Washington Samuel MD Jun 27, 2017 11:19
[2017-06-27] MEDS ORDERED: PILL SPLITTER OTHER PRN (11:30)
[2017-06-27] MEDS: lamoTRIgine 25 MG TAB PO SCH (16:50)
[2017-06-27 18:05] VITALS: BP 120/66; PULSE 61; RESP 18; TEMP 98.2; O2SAT 98
[2017-06-27] MEDS: PRAVASTATIN SOD 80 MG TAB PO SCH (19:49)
[2017-06-27] MEDS: diphenhydrAMINE HCL 50 MG CAP PO PRN (19:49)
[2017-06-27] MEDS ORDERED: OLANZapine 5 MG TAB PO SCH (21:00)
[2017-06-27] MEDS: ZOLPIDEM TARTRATE 10 MG TAB PO PRN (23:47)
[2017-06-28 05:02] VITALS: BP 114/63; PULSE 69; RESP 16; TEMP 98; O2SAT 98
[2017-06-28] MEDS: HYDROCHLOROTHIAZIDE 25 MG TAB PO SCH (09:00)
[2017-06-28] MEDS: VALSARTAN 160 MG TAB PO SCH (10:36)
[2017-06-28] MEDS: lamoTRIgine 100 MG TAB PO SCH (10:36)
[2017-06-28] MEDS: OLANZapine 10 MG TAB PO SCH (10:36)
--- NOTE | 2017-06-28 10:49 | HHI.PYPN ---
Subjective Remarks Patient seen for follow-up, chart reviewed. Discussion she staff reported the patient slept well last evening had no behavioral disturbances was noted to be slightly elevated mood disorder. Patient was found sitting in hospital bed, cooperative. She stated that he slept excellent last night. His mood is "upbeat" and reports that his energy has been "medium". Patient states he spoke with his yesterday and felt "paranoia was the word" in which he was noted to be blaming others for surrogate things which his had noticed. Patient noted to be religiously preoccupied today. Review of Systems Except as stated in HPI: all other systems reviewed are Neg Mental Status Examination Appearance: Appropriate Consciousness: Alert Orientation: Person Motor Activity: Normal gait Speech: Pressured (less so today) Language: Adequate Fund of Knowledge: Adequate Attention and Concentration: Adequate Memory: Impaired Mood: Appropriate Affect: Appropriate Thought Process & Associations: Linear Thought Content: Preoccupations (shinto), Delusional Hallucination Type: None Delusion Type: Paranoid (slightly) Suicidal Ideation: No Suicidal Plan: No Suicidal Intention: No Homicidal Ideation: No Homicidal Plan: No Homicidal Intention: No Insight: Fair Judgment: Impulsive Results Vitals/IOs Vital Signs Date Time Temp Pulse Resp B/P (MAP) Pulse Ox O2 Delivery O2 Flow Rate FiO2 06/28/17 05:02 98.0 69 16 114/63 (80) 98 Intake and Output 06/28/17 06/28/17 06/29/17 08:00 16:00 00:00 Intake Total 240 ml 960 ml Balance 240 ml 960 ml Assessment & Plan Problem List: (1) Bipolar disorder, current episode mixed, severe, with psychotic features ICD Codes: F31.64 - Bipolar disorder, current episode mixed, severe, with psychotic features Assessment & Plan Patient with much improved mood but other continues to have some residual shinto preoccupation but less intense today along with some paranoia. We'll increase olanzapine to 10 mg a.m./15 mg at bedtime continue to monitor mood and behavior. Discharge planning in progress Justification for Cont. Inpt. At risk for further decompensation if at lower level of care Discharge Planning Back to his residence Washington Samuel MD Jun 28, 2017 10:48
[2017-06-28] MEDS: lamoTRIgine 25 MG TAB PO SCH (17:11)
[2017-06-28 18:38] VITALS: BP 122/60; PULSE 63; RESP 16; TEMP 97.7; O2SAT 98
[2017-06-28] MEDS: ZOLPIDEM TARTRATE 10 MG TAB PO PRN (21:08)
[2017-06-28] MEDS: diphenhydrAMINE HCL 50 MG CAP PO PRN (21:08)
[2017-06-28] MEDS: PRAVASTATIN SOD 80 MG TAB PO SCH (21:08)
[2017-06-29] MEDS: diphenhydrAMINE HCL 50 MG CAP PO PRN (03:30)
[2017-06-29 06:00] VITALS: BP 111/61; PULSE 55; RESP 16; TEMP 97.5; O2SAT 97
[2017-06-29] MEDS: lamoTRIgine 100 MG TAB PO SCH (09:45)
[2017-06-29] MEDS: HYDROCHLOROTHIAZIDE 25 MG TAB PO SCH (09:45)
[2017-06-29] MEDS: VALSARTAN 160 MG TAB PO SCH (09:45)
[2017-06-29] MEDS: OLANZapine 10 MG TAB PO SCH (09:45)
--- NOTE | 2017-06-29 11:15 | HHI.PYPN ---
Subjective Remarks Patient was seen today for psychiatric reevaluation. Case was discussed with nursing charge. Chart reviewed. On psychiatric evaluation the patient is calm , cooperative, reports feeling better today. He described his mood as "the mood of a happy bipolar person". He reports that he has been sleeping about 6- 8 hours at night. Doesn't feel increase level of energy. No suicidal or homicidal ideation, no visual or auditory hallucinations. Did not note any restlessness, goal-directed activity, increased speech rate, no paranoia or delusions at this moment. However, the nurse reported that the patient has been a little bit hyper jainism at times. Compliant with medications,and difficult side effects. Oriented 3. Review of Systems Except as stated in HPI: all other systems reviewed are Neg Mental Status Examination Appearance: Appropriate Consciousness: Alert Orientation: Person Motor Activity: Normal gait Speech: Pressured (less so today) Language: Adequate Fund of Knowledge: Adequate Attention and Concentration: Adequate Memory: Impaired Mood: Appropriate Affect: Appropriate Thought Process & Associations: Linear Thought Content: Preoccupations (jainism), Delusional Hallucination Type: None Delusion Type: None Suicidal Ideation: No Suicidal Plan: No Suicidal Intention: No Homicidal Ideation: No Homicidal Plan: No Homicidal Intention: No Insight: Fair Judgment: Impulsive Results Vitals/IOs Vital Signs Date Time Temp Pulse Resp B/P (MAP) Pulse Ox O2 Delivery O2 Flow Rate FiO2 06/29/17 06:00 97.5 55 16 111/61 (78) 97 Intake and Output 06/29/17 06/29/17 06/30/17 08:00 16:00 00:00 Intake Total 480 ml 240 ml Balance 480 ml 240 ml Assessment & Plan Problem List: (1) Bipolar disorder, current episode mixed, severe, with psychotic features ICD Codes: F31.64 - Bipolar disorder, current episode mixed, severe, with psychotic features Assessment & Plan: Patient does not show significant symptomatology of bipolar , melissa or psychosis at the moment of this evaluation. He sees to be responding appropriately to psychotropics. He shows episodic hyperreligiosity. Continue current psychotropic regimen. Vital signs and labs reviewed. Assessment & Plan Estimated LOS: days Justification for Cont. Inpt. Patient has an increased risk to decompensate at a lower level of care. Lee Tsai MD Jun 29, 2017 11:15
[2017-06-29] MEDS: lamoTRIgine 25 MG TAB PO SCH (17:12)
[2017-06-29 18:13] VITALS: BP 113/59; PULSE 60; RESP 17; TEMP 97.9; O2SAT 98
[2017-06-29] MEDS: PRAVASTATIN SOD 80 MG TAB PO SCH (21:06)
[2017-06-30] MEDS: ZOLPIDEM TARTRATE 10 MG TAB PO PRN ×2 (00:17→22:47)
[2017-06-30 05:56] VITALS: BP 104/58; PULSE 58; RESP 16; TEMP 98.1; O2SAT 99
[2017-06-30] MEDS: OLANZapine 10 MG TAB PO SCH (08:36)
[2017-06-30] MEDS: lamoTRIgine 100 MG TAB PO SCH (08:37)
[2017-06-30 08:44] VITALS: BP 103/56; PULSE 66
[2017-06-30] MEDS: VALSARTAN 160 MG TAB PO SCH (08:44)
[2017-06-30] MEDS: HYDROCHLOROTHIAZIDE 25 MG TAB PO SCH (08:44)
--- NOTE | 2017-06-30 13:55 | HHI.PYPN ---
Subjective Remarks Patient was seen and case discussed with nursing. Patient is bright and cheerful during the interview. He is cooperative with his medications. He is behaving well on the unit. No manic symptoms were noted. Denies suicidal or homicidal ideation intent or plan Mental Status Examination Appearance: Appropriate Consciousness: Alert Orientation: Person Motor Activity: Normal gait Speech: Pressured (less so today) Language: Adequate Fund of Knowledge: Adequate Attention and Concentration: Adequate Memory: Impaired Mood: Appropriate Affect: Appropriate Thought Process & Associations: Linear Thought Content: Preoccupations (episcopal), Delusional Hallucination Type: None Delusion Type: None Suicidal Ideation: No Suicidal Plan: No Suicidal Intention: No Homicidal Ideation: No Homicidal Plan: No Homicidal Intention: No Insight: Fair Judgment: Impulsive Results Vitals/IOs Vital Signs Date Time Temp Pulse Resp B/P (MAP) Pulse Ox O2 Delivery O2 Flow Rate FiO2 06/30/17 08:44 66 103/56 (72) 06/30/17 05:56 98.1 16 99 Intake and Output 06/30/17 06/30/17 07/01/17 08:00 16:00 00:00 Intake Total 0 ml Balance 0 ml Assessment & Plan Problem List: (1) Bipolar disorder, current episode mixed, severe, with psychotic features ICD Codes: F31.64 - Bipolar disorder, current episode mixed, severe, with psychotic features Assessment & Plan Continue current treatment plan Justification for Cont. Inpt. Patient would decompensate in a less restrictive setting Gideon Dow DO Jun 30, 2017 13:55
[2017-06-30] MEDS: lamoTRIgine 25 MG TAB PO SCH (17:18)
[2017-06-30 18:51] VITALS: BP 124/62; PULSE 64; RESP 17; TEMP 98; O2SAT 98
[2017-06-30] MEDS: PRAVASTATIN SOD 80 MG TAB PO SCH (20:50)
[2017-07-01 06:13] VITALS: BP 122/60; PULSE 59; RESP 18; TEMP 97.9; O2SAT 98
[2017-07-01] MEDS: OLANZapine 10 MG TAB PO SCH (08:35)
[2017-07-01] MEDS: VALSARTAN 160 MG TAB PO SCH (08:35)
[2017-07-01] MEDS: lamoTRIgine 100 MG TAB PO SCH (08:35)
[2017-07-01] MEDS: HYDROCHLOROTHIAZIDE 25 MG TAB PO SCH (08:35)
[2017-07-01] MEDS ORDERED: OLAN15TA PO (16:36)
[2017-07-01] MEDS ORDERED: PRAV80TA PO (16:36)
[2017-07-01] MEDS ORDERED: HYDR25TA5 PO (16:36)
[2017-07-01] MEDS ORDERED: ZOLP10TA3 PO (16:36)
[2017-07-01] MEDS ORDERED: LAMO200T PO (16:36)
[2017-07-01] MEDS ORDERED: OLAN10TA PO (16:36)
[2017-07-01] MEDS ORDERED: VALS1TAB70 PO (16:36)
[2017-07-01] MEDS ORDERED: LAMO25 PO (16:36)
--- NOTE | 2017-07-01 16:39 | HHI.DS ---
Psychiatry Discharge Summary Inpatient Psychiatric care?: Yes Advance Directive: No Reason Not Provided: Due to Patient Condition Mental Health AdvanceDirective: No Health Care Proxy: No Admission Admission Date Jun 18, 2017 at 11:13 Admission Diagnosis: (1) Bipolar disorder, current episode mixed, severe, with psychotic features ICD Code: F31.64 - Bipolar disorder, current episode mixed, severe, with psychotic features Brief History 67-year-old male with multiyear history of bipolar disorder, noncompliant with medications recently, Owen acted by [facility] physician for inability to care for self. This physician completed the civil commitment paperwork because the patient is too psychotic to be considered competent. He is a very poor historian at this time and engages in loose associations, bordering on Word salad, flight of ideas, ideas of reference, etc. When approached by this physician, the patient indicated he met got in the bathroom this morning. He explained "Garth Mejia, Milse". When asked what that meant, the patient indicated his of "forever" was related to these names. The patient's was contacted and indicates he does have a history of bipolar disorder, has been noncompliant with his medications for an unknown period of time and is grossly psychotic and disorganized. He has a history of medical issues and is not taking his non-psychiatric medicines to care for himself. His is unable to care for him at this time. He is experiencing auditory hallucinations, visual hallucinations and christianity delusions. Tobacco Use In Past 30 Days: No Tobacco Past 30 Days Alcohol Use: 2-4 Times Per Month Hospital Course Patient is a 67-year-old man, , retired on social security benefits, , past psychiatric history of bipolar disorder, no previous psychiatric admissions as per patient no previous suicide attempt by self and his behavior, currently follows up with Dr. Akers for psychiatric services who was brought into the ED accompanied by for "mental breakdown" secondary to bipolar disorder noncompliance with medications which she was transferred to the inpatient psychiatry for further evaluation and management. Patient continued on lamotrigine 200mg daily/50mg in p.m., started on olanzapine and titrated to 10mg a.m., 15 mg at bedtime a day and zolpidem 10mg at bedtime which patient tolerated well without any noted side effects and monitored for mood and behavior. Patient was noted to have improvement of mood , decreased manic symptoms, no longer endorsing paranoia, continued to have decrease in christianity preoccupation, no behavioral dyscontrol on the unit, denied and suicidal or homicidal ideation and endorsed being future oriented. Upon discharge patient stated that she was feeling good, reported feeling support from his with renewed motivation to continue recommendations; denied any SI, HI, perceptual disturbances or delusions. Weighing the acute, chronic, and protective factors and based on the available evidence, I fly winder to a reasonable degree of medical certainty that the patient is at low imminent risk of harm to self or others from a mental illness as defined under the Owen act and her level of function is adequate for planned level of outpatient care. He and his were counseled regarding warning signs for need to return to the psychiatric emergency room as part of a general safety plan. Patient advised to call 911 or go nearest ED in case of emergency. Patient and family agreed with plan. Results Blood Pressure 122 / 60 Vital Signs Date Time Temp Pulse Resp B/P (MAP) Pulse Ox O2 Delivery O2 Flow Rate FiO2 07/01/17 06:13 97.9 59 18 122/60 (80) 98 Laboratory Results Test 06/19/17 14:23 Cholesterol Level 156 MG/DL (120-200) HDL Cholesterol 74.0 MG/DL (40.0-60.0) Hemoglobin A1c 5.1 % (4.3-6.0) LDL Cholesterol 67 MG/DL (0-99) Triglycerides Level 75 MG/DL (42-150) Summary of Procedures none Imaging Last Impressions Head CT 06/18/17 0000 Signed Impressions: Service Date/Time: Sunday, June 18, 2017 10:11 - CONCLUSION: 1. No acute intracranial abnormalities. Fluid in the mastoid air cells. Mike Castle MD Pending results at discharge: No Medications # of Antipsychotic meds at D/C: 1 Approp Antipsych med options 1 - Minimum of three failed multiple trials of monotherapy. 2 - Documented plan to taper to monotherapy due to previous use of multiple meds OR cross-taper in progress at D/C. 3 - Documentation of augmentation of Clozapine. 4 - Justification other than those listed in allowable values 1-3, document here : Discharge Discharge Date: Jul 01, 2017 Discharge Diagnosis: (1) Bipolar disorder, current episode mixed, severe, with psychotic features ICD Code: F31.64 - Bipolar disorder, current episode mixed, severe, with psychotic features Pt Condition on Discharge: Stable Discharge Disposition: Discharge Home Discharge Instructions Diet Instructions: Heart Healthy Diet Activities you can perform: Regular-No Restrictions Scheduled Appointment: [facility] Appointment Date: Jul 01, 2017 Discharge Time > 30 minutes Mental Status Examination Appearance: Appropriate Consciousness: Alert Orientation: Person Motor Activity: Normal gait Speech: Unremarkable Language: Adequate Fund of Knowledge: Adequate Attention and Concentration: Adequate Memory: Impaired Mood: Appropriate Affect: Appropriate Thought Process & Associations: Logical, Goal directed, Linear Thought Content: Preoccupations (less religiously preoccupied) Hallucination Type: None Delusion Type: None Suicidal Ideation: No Suicidal Plan: No Suicidal Intention: No Homicidal Ideation: No Homicidal Plan: No Homicidal Intention: No Insight: Fair Judgment: Impulsive Discharge/Advance Care Plan Health Problems: (1) Bipolar disorder, current episode mixed, severe, with psychotic features Goals to promote your health * To prevent worsening of your condition and complications * To maintain your health at the optimal level Directions to meet your goals Take your medications as prescribed Follow your dietary instruction Follow activity as directed Keep your appointments as scheduled Take your immunizations and boosters as scheduled If your symptoms worsen call your PCP, if no PCP go to Urgent Care Center or Emergency Room For 24/ questions related to your inpatient stay or results of tests pending at discharge, please contact Dr. Washington Samuel at Smoking is Dangerous to Your Health. Avoid second hand smoking Washington Samuel MD Jul 01, 2017 16:39
[2017-07-01] MEDS: lamoTRIgine 25 MG TAB PO SCH (17:02)
[2017-07-01 18:00] VITALS: BP 135/63; PULSE 67; RESP 16; TEMP 98; O2SAT 98
== END 2017-07-01 18:25 | disposition home or self-care (01) | DRG 885 ==
LOC: NEPD 08:13 → NEDA 11:13 → H4EA 13:15 → H260 06-29 15:10
PROVIDERS: ADMIT Student in an Organized Health Care Education/Training Program; ATTEND Student in an Organized Health Care Education/Training Program
DX: F31.64 Bipolar disorder, current episode mixed, severe, with psychotic features (principal); Z78.1 Physical restraint status; Z91.14 Patient's other noncompliance with medication regimen; I10 Essential (primary) hypertension; R15.9 Full incontinence of feces; R32 Unspecified urinary incontinence; Z85.048 Personal history of other malignant neoplasm of rectum, rectosigmoid junction, and anus; Z85.46 Personal history of malignant neoplasm of prostate; Z92.3 Personal history of irradiation; Z85.828 Personal history of other malignant neoplasm of skin; Z87.891 Personal history of nicotine dependence
CPT/HCPCS: 70450; 80053; 80061; 80307; 82306; 82607; 83036; 84443; 85025; 93005; 99285; J1200; J2060; Q0163

== ENCOUNTER 2017-11-07 13:24 | Inpatient (IN) ==
[2017-11-24] MEDS ORDERED: Aluminum/Magnesium/Simethacone Susp 30 ML UDC PO PRN ×2 (08:11→08:13)
[2017-11-24] MEDS ORDERED: Acetaminophen 325 MG Tablet PO PRN (08:11)
[2017-11-24] MEDS ORDERED: Benztropine Inj 2 MG/2 ML Ampul IM PRN (08:13)
[2017-11-24] MEDS: lamoTRIgine 100 MG Tablet PO SCH ×2 (13:16→20:35)
[2017-11-24] MEDS: Mineral Oil 55% Emulsion 480 ML PO SCH ×2 (13:16→22:00)
[2017-11-24] MEDS: Psyllium Fiber SF/GF 6 GM Packet PO SCH ×3 (13:17→18:09)
[2017-11-24] MEDS: Polyethylene Glycol 3350 17 GM Packet PO SCH (13:17)
[2017-11-24] MEDS: buPROPion 150 MG 12 HR Tablet PO SCH ×2 (13:20→20:35)
--- NOTE | 2017-11-24 14:19 | P.PNPSY ---
Subjective Remarks: Patient was seen and case discussed with nursing. Patient is very seclusive to his room only coming out for meals. When asked why, patient believes that all the other patients on the unit are aware of his history and note that "he is a pervert." He seems to believe that others would know his thoughts. Compliant with medications. No outbursts Mental Status Examination Appearance: Appropriate Consciousness: Alert Orientation: x4 Motor Activity: Normal gait Speech: Hesitant, Slow Language: Adequate Fund of Knowledge: Adequate Attention and Concentration: Adequate Memory: Impaired Mood: Oppositional Affect: Flat, Anxious Thought Process & Associations: Circumstantial Thought Content: Depersonalization Hallucination Type: None Delusion Type: Bizarre Suicidal Ideation: No Suicidal Plan: No Suicidal Intention: No Homicidal Ideation: No Homicidal Plan: No Homicidal Intention: No Insight: Poor Judgment: Poor Assessment and Plan - Assessment (1) Bipolar disorder, current episode depressed, severe, with psychotic features Code(s): F31.5 - Bipolar disorder, current episode depressed, severe, with psychotic features Status: Acute - Plan Plan: Estimated LOS: [] days Continue current treatment plan Justification for Continued Inpatient Stay: Patient would decompensate in a less restrictive setting
[2017-11-24] MEDS: OLANZapine 15 MG Tablet PO SCH (20:34)
[2017-11-25] MEDS: buPROPion 150 MG 12 HR Tablet PO SCH ×2 (09:02→15:48)
[2017-11-25] MEDS: Polyethylene Glycol 3350 17 GM Packet PO SCH (09:03)
[2017-11-25] MEDS: lamoTRIgine 100 MG Tablet PO SCH ×2 (09:03→20:39)
[2017-11-25] MEDS: Psyllium Fiber SF/GF 6 GM Packet PO SCH ×4 (09:03→17:50)
[2017-11-25] MEDS: Mineral Oil 55% Emulsion 480 ML PO SCH (09:05)
--- NOTE | 2017-11-25 14:20 | P.PNPSY ---
Subjective Remarks: Patient seen and examined with nurse. Chart reviewed. Case discussed with nursing staff. No behavioral issues noted overnight. On my examination today, patient seems improved versus before the weekend. His affect is brighter and he seems less troubled by his delusions regarding criminality. When I observe these improvements to the patient he explains "now it's older" (i.e. his perceived offenses are more remote in time and so trouble him less). Patient himself feels like he is improving and notes that he is sleeping better. Complains of some mild tremor but no other medication side effects. No physical complaints. Vital Signs Temp Pulse Resp BP Pulse Ox 11/25/17 05:58 98 F 67 16 122/66 99 11/24/17 23:38 98.2 F 70 18 119/65 98 11/24/17 18:00 98.3 F 68 18 133/79 97 Labs reviewed. No new labs. Review of Systems All other systems reviewed negative except as stated in HPI Mental Status Examination Appearance: Appropriate Consciousness: Alert Orientation: x4 Motor Activity: Other (Mild cogwheeling and resting hand tremor. No dystonias or dyskinesias noted.) Speech: Unremarkable Language: Adequate (More spontaneous) Fund of Knowledge: Adequate Attention and Concentration: Adequate Memory: Impaired Mood: Other (Less dysphoric) Affect: Other (More reactive) Thought Process & Associations: Intact Thought Content: Other (Delusions) Hallucination Type: None Delusion Type: Other (Ego-syntonic depressive delusions decreasing in intensity) Suicidal Ideation: No Suicidal Plan: No Suicidal Intention: No Homicidal Ideation: No Homicidal Plan: No Homicidal Intention: No Insight: Poor Judgment: Poor Assessment and Plan - Assessment (1) Bipolar disorder, current episode depressed, severe, with psychotic features Code(s): F31.5 - Bipolar disorder, current episode depressed, severe, with psychotic features Status: Acute - Plan Plan: Add low-dose Cogentin for management of probable antipsychotic related EPS. Extensive discussion with the patient regarding the R/B/A of this medication. Continue psychotropics as ordered for now, except that I will move the evening dose of Wellbutrin to the late afternoon per patient preference. Continue to monitor on the inpatient unit. Continue other medications and care as ordered. Justification for Continued Inpatient Stay: Risk for decompensation in less restrictive environment Discharge Planning: Pending psychiatric stabilization
[2017-11-25] MEDS: OLANZapine 15 MG Tablet PO SCH (20:38)
[2017-11-26] MEDS: buPROPion 150 MG 12 HR Tablet PO SCH ×2 (09:00→17:09)
[2017-11-26] MEDS: lamoTRIgine 100 MG Tablet PO SCH ×2 (09:12→22:16)
[2017-11-26] MEDS: Psyllium Fiber SF/GF 6 GM Packet PO SCH ×3 (09:16→17:11)
[2017-11-26] MEDS: Polyethylene Glycol 3350 17 GM Packet PO SCH (09:16)
[2017-11-26] MEDS: Mineral Oil 55% Emulsion 480 ML PO SCH ×2 (09:18→22:17)
--- NOTE | 2017-11-26 10:47 | P.PNPSY ---
Subjective Remarks: Patient seen and examined with nurse and counselor. Chart reviewed. Case discussed with nursing staff. Patient noted to be somewhat more social on the unit. Case discussed in treatment team. On my exam today, patient notes improved tremor with addition of Cogentin. He denies SI/HI. Patient is again not ruminative, noting that whatever bad acts he may have committed, these are in the past. Affect seems brighter and more reactive. Denies new side effects from medication. No new physical complaints. Vital Signs Temp Pulse Resp BP Pulse Ox 11/26/17 03:45 97.6 F 78 18 122/74 98 Labs reviewed. No new labs. Review of Systems All other systems reviewed negative except as stated in HPI Mental Status Examination Appearance: Appropriate Consciousness: Alert Orientation: x4 Motor Activity: Other (Resting tremor and cogwheeling significantly decreased. No other motor abnormalities noted.) Speech: Unremarkable Language: Adequate Fund of Knowledge: Adequate Attention and Concentration: Adequate Memory: Unremarkable (Grossly intact on clinical exam) Mood: Other (Mood is improving) Affect: Other (Again more reactive) Thought Process & Associations: Intact Thought Content: Other (Delusions, improving) Hallucination Type: None Delusion Type: Other (Ego-syntonic depressive delusions continue to improve) Suicidal Ideation: No Suicidal Plan: No Suicidal Intention: No Homicidal Ideation: No Homicidal Plan: No Homicidal Intention: No Insight: Poor (Perhaps improving) Judgment: Poor (Perhaps improving) Assessment and Plan - Assessment (1) Bipolar disorder, current episode depressed, severe, with psychotic features Code(s): F31.5 - Bipolar disorder, current episode depressed, severe, with psychotic features Status: Acute - Plan Plan: Continue Lamictal, Wellbutrin and Zyprexa as ordered. I have offered patient medication adjustment today, but he has declined. Given patient's general trend of improvement, it is possible that he will experience adequate symptomatic improvement with current regimen. Continue to monitor on the inpatient unit. Continue other medications and care as ordered. Justification for Continued Inpatient Stay: Risk for decompensation in less restrictive environment. Discharge Planning: Possible discharge later in the week. Counselor is exploring possibility of residential placement, such as at [facility].
[2017-11-26] MEDS: OLANZapine 15 MG Tablet PO SCH (22:13)
[2017-11-27] MEDS: buPROPion 150 MG 12 HR Tablet PO SCH ×2 (10:29→16:21)
[2017-11-27] MEDS: lamoTRIgine 100 MG Tablet PO SCH ×2 (10:31→21:30)
[2017-11-27] MEDS: Polyethylene Glycol 3350 17 GM Packet PO SCH (10:32)
[2017-11-27] MEDS: Mineral Oil 55% Emulsion 480 ML PO SCH ×2 (10:33→21:32)
[2017-11-27] MEDS: Psyllium Fiber SF/GF 6 GM Packet PO SCH ×3 (10:33→18:42)
--- NOTE | 2017-11-27 11:27 | P.PNPSY ---
Subjective Remarks: Patient seen and examined. Chart reviewed. Case discussed with nursing staff. On my examination today, the patient denies suicidal or homicidal ideation. Affect is once again more reactive. The patient expresses anxiety about the possibility of going to a residential treatment program. Possibly related to this anxiety he is experiencing some recrudescence of his delusional material. He reports that he feels like he is being judged by other patients and staff regarding prior misdeeds noting "if looks could kill." Although not completely incorrigible, this belief is quite persistent and distressing. No side effects from medications. No new physical complaints. Vital Signs Temp Pulse Resp BP Pulse Ox 11/27/17 05:55 97.8 F 70 18 134/80 11/26/17 18:29 97.6 F 78 18 106/58 L 99 Labs reviewed. No new labs. Review of Systems All other systems reviewed negative except as stated in HPI Mental Status Examination Appearance: Appropriate Consciousness: Alert Orientation: x4 Motor Activity: Other (No motor abnormalities noted) Speech: Unremarkable Language: Adequate Fund of Knowledge: Adequate Attention and Concentration: Adequate Memory: Unremarkable (Grossly intact on clinical exam) Mood: Other (Mood is improving) Affect: Other (Affect more reactive) Thought Process & Associations: Intact Thought Content: Delusional Hallucination Type: None Delusion Type: Other (Ego-syntonic depressive delusions somewhat worse today) Suicidal Ideation: No Suicidal Plan: No Suicidal Intention: No Homicidal Ideation: No Homicidal Plan: No Homicidal Intention: No Insight: Poor (Perhaps improving) Judgment: Poor (Perhaps improving) Assessment and Plan - Assessment (1) Bipolar disorder, current episode depressed, severe, with psychotic features Code(s): F31.5 - Bipolar disorder, current episode depressed, severe, with psychotic features Status: Acute - Plan Plan: Titrate Zyprexa to 20 mg at bedtime given interval worsening of psychosis. Continue other psychotropics as ordered. Monitor for any worsening of EPS. Continue to monitor on the inpatient unit. Continue other medications and care as ordered. Justification for Continued Inpatient Stay: Medication changes. Discharge Planning: Possible discharge to residential treatment program later in the week
--- NOTE | 2017-11-27 13:07 | P.DIET ---
Nutritional Evaluation Type of nutrition evaluation: follow-up Nutrition consult regarding: Diet Evaluation Nutrition screening: MDC Subjective Subjective Comments: Spoke w/Pt in the Recreation Room after lunch today. Pt has no complaints regarding his meals and the Ensure supplement. Objective - Diagnosis Bipolar Depression - Indications of Malnutrition Characteristics: Weight loss - Objective Body Weight Used for Calculations: Actual Energy Needs - Lower Range (kCal/kg): 25 Energy Needs - Upper Range (kCal/kg): 30 Lower Limit kCal/kg (kCals): 1,998 Upper Limit kCal/kg (kCals): 2,397 Lower Limit Protein Factor (Grams per Kg): 1.1 Upper Limit Protein Factor (Grams per Kg): 1.4 Lower Protein Needs (Protein): 88 Upper Protein Needs (Protein): 112 Fluid Factor (ml/kg): 30 Estimated Fluid Needs (ml): 2,397 Dietitian Reviewed in Medical Record: Current diet, Curent medications, Intake & Output, Labs Diet Order: Regular Oral Diet Intake Amount: Good 75-90% Objective Comments: PMH: Bipolar DO, h/o radiation proctitis A1C 4.9 Meds Include: Seroquel, Zyprexa, Wellbutrin, Lamictal, Lunesta, Ativan, Diovan, HCTZ, Pravachol Assessment Assessment: Pt is follow-up for MDC and wt loss. Pt now w/adequate po intake. Continue Double Portions. Continue Ensure w/meals. Wt stable-last wt 11/23. Dietitian to follow as needed. Recommendations: 1. Continue Double Portions 2.Continue Ensure w/meals 3. Dietitian to follow as needed
[2017-11-27] MEDS ORDERED: Magnesium Citrate Liq 300 ML Bottle PO PRN (15:31)
[2017-11-27] MEDS: OLANZapine 10 MG Tablet PO SCH (21:29)
[2017-11-28] MEDS: Mineral Oil 55% Emulsion 480 ML PO SCH ×2 (08:55→20:49)
[2017-11-28] MEDS: Polyethylene Glycol 3350 17 GM Packet PO SCH (09:00)
[2017-11-28] MEDS: buPROPion 150 MG 12 HR Tablet PO SCH ×2 (09:01→17:06)
--- NOTE | 2017-11-28 16:38 | P.PNPSY ---
Subjective Remarks: Patient seen and examined with nurse. Chart reviewed. Case discussed with nursing staff. No behavioral issues noted. We find the patient in the day area , and he appears to be tolerating the milieu well. Mood is improved and the patient describes his outlook as just "a little depressed." Seems less preoccupied with ruminations over perceived prior misdeeds. Denies any AVH. Denies any SI or HI. Does complain of some mild worsening of tremor with titration of Zyprexa, and we discuss increasing his Cogentin to counteract this. No other medication side effects. No physical complaints. Vital Signs Temp Pulse Resp BP Pulse Ox 11/28/17 05:40 97.4 F L 79 16 119/73 96 11/27/17 18:21 98.4 F 74 20 126/64 99 Intake and Output 11/28/17 11/28/17 11/28/17 06:59 14:59 22:59 Other: Weight 77.1 kg Labs reviewed. No new labs. Review of Systems All other systems reviewed negative except as stated in HPI Mental Status Examination Appearance: Appropriate Consciousness: Alert Orientation: x4 Motor Activity: Normal gait, Other (Mild resting hand tremor. No other motor abnormalities noted) Speech: Unremarkable Language: Adequate Fund of Knowledge: Adequate Attention and Concentration: Adequate Memory: Unremarkable (Grossly intact on clinical exam) Mood: Other (Mood continues to improve) Affect: Other (Affect more reactive) Thought Process & Associations: Intact Thought Content: Delusional Hallucination Type: None Delusion Type: Other (Ego-syntonic depressive delusions decreased) Suicidal Ideation: No Suicidal Plan: No Suicidal Intention: No Homicidal Ideation: No Homicidal Plan: No Homicidal Intention: No Insight: Poor (Perhaps improving) Judgment: Poor (Perhaps improving) Assessment and Plan - Assessment (1) Bipolar disorder, current episode depressed, severe, with psychotic features Code(s): F31.5 - Bipolar disorder, current episode depressed, severe, with psychotic features Status: Acute - Plan Plan: Continue increased dose of Zyprexa. Titrate Cogentin to 0.5 mg twice daily. Continue other psychotropics as ordered. Dietitian input noted and appreciated. Continue other care as ordered. Justification for Continued Inpatient Stay: Medication changes. Discharge Planning: Possible discharge tomorrow versus after the weekend. Counselor informs me that the patient cannot enter into residential treatment at [facility] until middle of next week at the earliest, and so it will probably be necessary for him to return home and from there go to [facility].
[2017-11-28] MEDS: lamoTRIgine 100 MG Tablet PO SCH (20:46)
[2017-11-28] MEDS: OLANZapine 10 MG Tablet PO SCH (20:48)
[2017-11-29] MEDS: Mineral Oil 55% Emulsion 480 ML PO SCH ×2 (09:28→21:11)
[2017-11-29] MEDS: buPROPion 150 MG 12 HR Tablet PO SCH (09:36)
--- NOTE | 2017-11-29 12:23 | P.PNPSY ---
Subjective Remarks: Patient seen and examined with nurse. Chart reviewed. Case discussed with nursing staff. Case discussed in treatment team. Counselor informs me that insurer will not cover residential treatment but would cover ambulatory ECT. Patient's is supportive of ECT. On my examination today, the patient says that he too would be willing to pursue an evaluation for ECT, and we discussed the typical process of ambulatory ECT. He denies any SI or HI. Denies any AVH. Delusions continue to soften. Mood is improving. No side effects from medications. No physical complaints. Vital Signs Temp Pulse Resp BP Pulse Ox 11/29/17 06:18 97.8 F 64 16 132/65 98 Labs reviewed. No new labs. Review of Systems All other systems reviewed negative except as stated in HPI Mental Status Examination Appearance: Appropriate Consciousness: Alert Orientation: x4 Motor Activity: Normal gait, Other (No motor abnormalities noted) Speech: Unremarkable Language: Adequate Fund of Knowledge: Adequate Attention and Concentration: Adequate Memory: Unremarkable (Grossly intact on clinical exam) Mood: Other (Mood continues improving) Affect: Other (Affect more reactive) Thought Process & Associations: Intact Thought Content: Appropriate Hallucination Type: None Delusion Type: None (No delusional material verbalized today) Suicidal Ideation: No Suicidal Plan: No Suicidal Intention: No Homicidal Ideation: No Homicidal Plan: No Homicidal Intention: No Insight: Poor (Perhaps improving) Judgment: Poor (Perhaps improving) Assessment and Plan - Assessment (1) Bipolar disorder, current episode depressed, severe, with psychotic features Code(s): F31.5 - Bipolar disorder, current episode depressed, severe, with psychotic features Status: Acute - Plan Plan: Patient's depression is improving with pharmacotherapy. However, patient might benefit from ambulatory ECT evaluation as this treatment modality could provide equally efficacious treatment for his bipolar depression and has the potential to lessen medication burden. Continue current psychotropics as ordered for now. Continue to monitor on the inpatient unit. Continue other medications and care as ordered. Justification for Continued Inpatient Stay: Risk for decompensation Discharge Planning: Anticipate discharge Saturday
[2017-11-29] MEDS: lamoTRIgine 100 MG Tablet PO SCH (21:09)
[2017-11-29] MEDS: LORazepam 1 MG Tablet PO PRN ×2 (21:18→21:29)
[2017-11-30] MEDS: lamoTRIgine 100 MG Tablet PO SCH ×2 (09:41→20:47)
[2017-11-30] MEDS: Polyethylene Glycol 3350 17 GM Packet PO SCH (09:47)
[2017-11-30] MEDS: Psyllium Fiber SF/GF 6 GM Packet PO SCH ×2 (09:51→14:38)
[2017-11-30] MEDS: buPROPion 150 MG 12 HR Tablet PO SCH ×2 (09:52→18:07)
[2017-11-30] MEDS: Mineral Oil 55% Emulsion 480 ML PO SCH ×2 (14:37→20:56)
--- NOTE | 2017-11-30 16:20 | P.PNPSY ---
Subjective Remarks: Pt seen and discussed with staff. He is compliant with medications. He exhibits prominent anxious ruminations and has been isolative to room. He is less focused on delusions, but remains convinced that the [employer] Police are punishing him by "dragging out the arrest. they do that sometimes to start punishment early." Mental Status Examination Appearance: Appropriate Consciousness: Alert Orientation: x4 Motor Activity: Normal gait, Other (No motor abnormalities noted) Speech: Unremarkable Language: Adequate Fund of Knowledge: Adequate Attention and Concentration: Adequate Memory: Unremarkable (Grossly intact on clinical exam) Mood: Other (Mood continues improving) Affect: Other (Affect more reactive) Thought Process & Associations: Intact Thought Content: Appropriate Hallucination Type: None Delusion Type: Paranoid Suicidal Ideation: No Suicidal Plan: No Suicidal Intention: No Homicidal Ideation: No Homicidal Plan: No Homicidal Intention: No Insight: Poor (Perhaps improving) Judgment: Poor (Perhaps improving) Assessment and Plan - Assessment (1) Bipolar disorder, current episode depressed, severe, with psychotic features Code(s): F31.5 - Bipolar disorder, current episode depressed, severe, with psychotic features Status: Acute - Plan Plan: Continue current tx plan. Justification for Continued Inpatient Stay: impairments in reality testing
[2017-11-30] MEDS: OLANZapine 10 MG Tablet PO SCH (20:55)
[2017-12-01] MEDS: buPROPion 150 MG 12 HR Tablet PO SCH ×2 (09:16→09:20)
[2017-12-01] MEDS: lamoTRIgine 100 MG Tablet PO SCH ×2 (09:18→20:35)
[2017-12-01] MEDS: Polyethylene Glycol 3350 17 GM Packet PO SCH (09:18)
[2017-12-01] MEDS: Psyllium Fiber SF/GF 6 GM Packet PO SCH ×2 (09:20→13:16)
[2017-12-01] MEDS: Mineral Oil 55% Emulsion 480 ML PO SCH ×2 (09:22→21:33)
--- NOTE | 2017-12-01 17:16 | P.PNPSY ---
Subjective Remarks: Pt seen and discussed with staff. He has been more organized in thought process today, andless fixated on delusions today. He is compliatn with medications. No SI/HI Mental Status Examination Appearance: Appropriate Consciousness: Alert Orientation: x4 Motor Activity: Normal gait, Other (No motor abnormalities noted) Speech: Unremarkable Language: Adequate Fund of Knowledge: Adequate Attention and Concentration: Adequate Memory: Unremarkable (Grossly intact on clinical exam) Mood: Sad Affect: Other (Affect more reactive) Thought Process & Associations: Intact Thought Content: Appropriate Hallucination Type: None Delusion Type: Paranoid (decreasing) Suicidal Ideation: No Suicidal Plan: No Suicidal Intention: No Homicidal Ideation: No Homicidal Plan: No Homicidal Intention: No Insight: Poor (Perhaps improving) Judgment: Poor (Perhaps improving) Assessment and Plan - Assessment (1) Bipolar disorder, current episode depressed, severe, with psychotic features Code(s): F31.5 - Bipolar disorder, current episode depressed, severe, with psychotic features Status: Acute - Plan Plan: Continue current tx plan. Justification for Continued Inpatient Stay: impairments in reality testing
[2017-12-01] MEDS: OLANZapine 10 MG Tablet PO SCH (20:36)
[2017-12-02 05:53] VITALS: BP 133/65; PULSE 67; RESP 16; TEMP 97.9; O2SAT 100
[2017-12-02] MEDS: lamoTRIgine 100 MG Tablet PO SCH (09:27)
[2017-12-02] MEDS: buPROPion 150 MG 12 HR Tablet PO SCH (12:30)
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
== END 2017-12-02 15:11 | disposition home or self-care (01) ==
LOC: H260 22:25
PROVIDERS: ADMIT Psychiatry & Neurology Psychiatry; ATTEND Psychiatry & Neurology Psychiatry